=== PATIENT | male | born 1985 | race Caucasian/White ===

== ENCOUNTER 2020-05-05 07:46 | Emergency (ER) | payer OTHER ==
[2020-05-05 07:59] VITALS: BP 128/84; PULSE 82; TEMP 97.9; BMI 29.8
[2020-05-05] MEDS ORDERED: KETOROLAC TROMETHAMINE 30 MG/1 ML VIAL IM ONE (08:16)
[2020-05-05] MEDS ORDERED: diazePAM 5 MG TABLET PO ONE (08:17)
[2020-05-05] MEDS ORDERED: KETOROLAC TROMETHAMINE 30 MG/1 ML VIAL ONE (09:08)
[2020-05-05] MEDS ORDERED: diazePAM 5 MG TABLET ONE (09:08)
== END 2020-05-05 09:58 | disposition home or self-care (01) ==
LOC: JER 07:46
PROC: 3E0233Z Introduction of Anti-inflammatory into Muscle, Percutaneous Approach (ICD-10-PCS; principal; 2020-05-05)
DX: M54.12 Radiculopathy, cervical region (principal)
CPT/HCPCS: 99284-25